=== PATIENT | male | born 1965 | race Caucasian/White ===

== ENCOUNTER 2020-07-06 09:12 | Emergency (ER) | payer MEDICARE ==
[2020-07-06 10:28] LABS: #Eosinphils 0.1 thou/uL (0.0-0.7); #Monocytes 0.6 thou/uL (0.11-0.59); #Neutrophils 3.5 thou/uL (1.40-6.50); %Basophils 0.8 % (0.0-1.0); %Eosinophils 1.2 % (0.0-10.0); %Monocytes 11.1 % (0.0-10.0); %Neutrophils 67.9 % (42.0-75.0); Hemoglobin 11.4 g/dL (14.0-18.0); Mean Corpuscular HGB CONC 33.9 g/dL (32.0-36.0); Mean Corpuscular Hemoglobin 34.1 pg (27.0-31.0); Mean Platelet Volume 7.9 fL (7.4-10.4); Platelet Count 189 thou/uL (130-400); RBC Distribution Width 13.8 % (11.5-14.5); Red Blood Cell (RBC) Count 3.34 mill/uL (4.70-6.10); White Blood Cell (WBC) Count 5.2 thou/uL (4.8-10.8)
[2020-07-06 10:52] LABS: ALT (SGPT) 30 U/L (8-55); AST (SGOT) 59 U/L (5-34); Albumin 2.6 g/dL (3.5-5.0); Alkaline Phosphatase 194 U/L (40-110); Anion Gap 14 mmol/L (10-20); BUN (Urea Nitrogen) 7 mg/dL (8.4-25.7); Bilirubin, Total 0.7 mg/dL (0.2-1.2); Calc. Creatinine Clearance 0 mL/min (70-130); Calcium 8.4 mg/dL (7.8-10.44); Carbon Dioxide 26 mmol/L (22-29); Chloride 99 mmol/L (98-107); Estimated GFR-MDRD Greater than 90; Globulin 3.2 g/dL (2.4-3.5); Glucose 93 mg/dL (70-105); Potassium 4.6 mmol/L (3.5-5.1); Protein, Total 5.8 g/dL (6.0-8.3); Sodium 134 mmol/L (136-145)
--- NOTE | 2020-07-06 11:15 | ULT ---
EXAM: Left lower extremity venous ultrasound HISTORY: Left lower extremity pain and edema COMPARISON: None TECHNIQUE: Multiplanar grayscale and color Doppler images were obtained in a left lower extremity caitlin ous ultrasound. Spectral analysis of the Doppler waveforms were performed. FINDINGS: There is visible thrombus from the common femoral vein down to the posterior tibial vein. T his involves the superficial femoral vein and popliteal vein. Flow is seen and this thrombus is incomplete. The profunda femoral vein is patent. The greater saphenous vein are patent without evidence of thrombus. IMPRESSION: DVT of the left leg as above.
--- NOTE | 2020-07-06 11:46 | PDOC.FPRHP ---
- History PMHx: PSHx: FHx: Social: - Vital signs BP: [] HR: [] RR: [] Tmax: [] Pox: []% on [] Wt: [] FMR H&P: Results - Labs Result Diagrams: 07/06/20 09:59 07/06/20 09:59 Lab results: WBC 5.2 thou/uL (4.8-10.8) 07/06/20 09:59 Hgb 11.4 g/dL (14.0-18.0) L 07/06/20 09:59 Hct 33.7 % (42.0-52.0) L 07/06/20 09:59 MCV 101.0 fL (78.0-98.0) H 07/06/20 09:59 Plt Count 189 thou/uL (130-400) 07/06/20 09:59 Neutrophils % 67.9 % (42.0-75.0) 07/06/20 09:59 Sodium 134 mmol/L (136-145) L 07/06/20 09:59 Potassium 4.6 mmol/L (3.5-5.1) 07/06/20 09:59 Chloride 99 mmol/L (98-107) 07/06/20 09:59 Carbon Dioxide 26 mmol/L (22-29) 07/06/20 09:59 BUN 7 mg/dL (8.4-25.7) L 07/06/20 09:59 Creatinine 0.82 mg/dL (0.7-1.3) 07/06/20 09:59 Glucose 93 mg/dL (70-105) 07/06/20 09:59 Calcium 8.4 mg/dL (7.8-10.44) 07/06/20 09:59 Total Bilirubin 0.7 mg/dL (0.2-1.2) 07/06/20 09:59 AST 59 U/L (5-34) H 07/06/20 09:59 ALT 30 U/L (8-55) 07/06/20 09:59 Alkaline Phosphatase 194 U/L (40-110) H 07/06/20 09:59 Serum Total Protein 5.8 g/dL (6.0-8.3) L 07/06/20 09:59 Albumin 2.6 g/dL (3.5-5.0) L 07/06/20 09:59 FMR H&P: Upper Level - Plan Date/Time: 07/06/20 1146 I, [], have evaluated this patient and agree with findings/plan as outlined by internet assessor resident. Pertinent changes/additions are listed here.
[2020-07-06] MEDS ORDERED: Enoxaparin Sodium 80 MG/0.8 ML SYRINGE ONE (11:57)
--- NOTE | 2020-07-06 12:36 | RAD ---
RADIOGRAPH CHEST 1 VIEW: DATE: 07/06/2020 HISTORY: 55-year-old male with dyspnea. COMPARISON: None FINDINGS: There are no airspace densities, pulmonary edema, pneumothorax, or cardiomegaly. The lateral costophr enic angles are sharp. There is a small stellate density at the right lateral lower lung zone. IMPRESSION: 1. No acute cardiopulmonary findings. 2. Small stellate lesion at right lower lung zone: Pulmonary scar versus small lung cancer. Recommend CT chest noncontrast for further evaluation, on a nonemergent basis.
[2020-07-06] MEDS ORDERED: Apixaban 5 MG TAB PO SCH (13:00)
== END 2020-07-06 13:19 | disposition home or self-care (01) ==
LOC: ERS 09:12
DX: I82.412 Acute embolism and thrombosis of left femoral vein (principal); I82.442 Acute embolism and thrombosis of left tibial vein; D64.9 Anemia, unspecified; R94.5 Abnormal results of liver function studies; J44.9 Chronic obstructive pulmonary disease, unspecified; F41.9 Anxiety disorder, unspecified; F32.9 Major depressive disorder, single episode, unspecified; F17.210 Nicotine dependence, cigarettes, uncomplicated
CPT/HCPCS: 36415; 71045; 80053; 82550; 83880; 84484; 85025; 85379; 93005; J1650

== ENCOUNTER 2020-12-01 18:33 | Inpatient (IN) | payer MEDICARE ==
[~2020-12-01 18:33] MED LIST: Iopamidol-370 76% 500 ML 1 ML ONE
[2020-12-01 19:09] LABS: #Basophils 0.1 thou/uL (0.0-0.2); #Eosinphils 0.2 thou/uL (0.0-0.7); #Lymphocytes 2.9 thou/uL (1.20-3.40); #Monocytes 0.9 thou/uL (0.11-0.59); #Neutrophils 8.4 thou/uL (1.40-6.50); %Basophils 0.8 % (0.0-1.0); %Eosinophils 1.9 % (0.0-10.0); %Lymphocytes 22.9 % (21.0-51.0); %Monocytes 7.4 % (0.0-10.0); Hemoglobin 12.3 g/dL (14.0-18.0); Mean Corpuscular HGB CONC 32.9 g/dL (32.0-36.0); Mean Corpuscular Hemoglobin 33.6 pg (27.0-31.0); Platelet Count 141 thou/uL (130-400); RBC Distribution Width 11.5 % (11.5-14.5); Red Blood Cell (RBC) Count 3.65 mill/uL (4.70-6.10); White Blood Cell (WBC) Count 12.5 thou/uL (4.8-10.8)
[2020-12-01 19:15] LABS: INR-International Normal Ratio 1.2; Prothrombin Time 14.9 sec (12.0-14.7)
[2020-12-01] MEDS ORDERED: Tranexamic Acid 1,000 MG/10 ML VIAL ONE (19:22)
[2020-12-01] MEDS ORDERED: Calcium Chloride 1 GM/10 ML Abboject SYRINGE ONE ×5 (19:29→21:19)
[2020-12-01 19:30] LABS: ALT (SGPT) 15 U/L (8-55); AST (SGOT) 29 U/L (5-34); Alkaline Phosphatase 99 U/L (40-110); Anion Gap 23 mmol/L (10-20); BUN (Urea Nitrogen) 4 mg/dL (8.4-25.7); Bilirubin, Total 0.5 mg/dL (0.2-1.2); Calc. Creatinine Clearance 0 mL/min (70-130); Calcium 7.6 mg/dL (7.8-10.44); Carbon Dioxide 11 mmol/L (22-29); Chloride 97 mmol/L (98-107); Globulin 2.5 g/dL (2.4-3.5); Glucose 197 mg/dL (70-105); Lipase 29 U/L (8-78); Potassium 3.3 mmol/L (3.5-5.1); Protein, Total 5.5 g/dL (6.0-8.3); Sodium 128 mmol/L (136-145)
[2020-12-01] MEDS ORDERED: Calcium Gluc 4.6 MEQ/10 ML (100 MG/ML) ONE (19:32)
[2020-12-01] MEDS ORDERED: Norepinephrine 8 MG/0.9% NS 250 ML ONE (19:34)
[2020-12-01] MEDS ORDERED: ADMIXTURE FEE IV SCH (19:45)
[2020-12-01] MEDS ORDERED: Ondansetron PF 4 MG/2 ML Vial ONE ×2 (19:45→19:48)
[2020-12-01] MEDS ORDERED: [UNRECOGNIZED DRUG - OTHER] IV SCH (19:45)
[2020-12-01] MEDS ORDERED: HUM PROTHROMBIN CPLX IV SCH (19:45)
[2020-12-01] MEDS ORDERED: Azithromycin 500 MG VIAL ONE (19:45)
[2020-12-01] MEDS ORDERED: Fentanyl 100 MCG/2 ML VIAL ONE (20:01)
[2020-12-01] MEDS ORDERED: Phenylephrine 10 MG/ML VIAL ONE (20:01)
[2020-12-01] MEDS ORDERED: Rocuronium Bromide 10 MG/ML (10ML VIAL) ONE (20:17)
[2020-12-01] MEDS ORDERED: PHENYLEPHRINE-NS 100 MCG/ML 10 ML SYRINGE ONE (20:17)
[2020-12-01] MEDS ORDERED: Lidocaine 1% PF 5 ML VIAL ONE (20:17)
[2020-12-01] MEDS ORDERED: PROPOFOL 200 MG/20 ML VIAL ONE (20:17)
[2020-12-01] MEDS ORDERED: Succinylcholine 200 MG/10 ml SYRINGE FS ONE (20:17)
[2020-12-01] MEDS ORDERED: ceFOXitin 1 GM VIAL ONE ×2 (20:25→20:59)
[2020-12-01 20:32] LABS: SARS-CoV-2 NAA Rapid Test Not Detected (NotDetected)
[2020-12-01] MEDS ORDERED: cefOXitin Sodium/Dextrose 2 GM/50 ML BAG ONE (20:57)
[2020-12-01] MEDS ORDERED: Sodium Bicarb 50 MEQ/50 ML Abboject 8.4% SYRINGE ONE (21:05)
[2020-12-01 21:23] LABS: Actual Bicarbonate (HCO3a) 18.7 mEq/L (22-28); Base Excess (BEa) -8.1 mEq/L (-2.0 to +3.0); CO2 Tension 43.2 mmHg (35.0-45.0); O2 Tension (PaO2), arterial 353.8 mmHg (80.0-100.0); pH, Arterial 7.26 (7.35-7.45)
[2020-12-01] MEDS ORDERED: Norepinephrine 4 MG/4 ML VIAL ONE ×2 (21:23→21:24)
[2020-12-01 21:24] LABS: Calcium, Ionized (arterial) 0.48 mmol/L (1.12-1.30); Carboxyhemoglobin (COHb) 1.2 gm% (0.0-3.0); Hemoglobin (Hb) 12.1 g/dL (14.0-18.0); Potassium - ABG Lab 4.41 mmol/L (3.70-5.30)
[2020-12-01 21:25] LABS: Puncture Site Other Site
[2020-12-01] MEDS ORDERED: [UNRECOGNIZED DRUG - OTHER] SLOW IVP SCH (21:30)
[2020-12-01] MEDS ORDERED: Fentanyl 250 MCG/5 ML VIAL ONE ×2 (22:08→22:29)
[2020-12-01] MEDS ORDERED: Midazolam HCl 5 mg/5 ml Vial ONE (22:29)
[2020-12-01 22:59] LABS: Hemoglobin 14.1 g/dL (14.0-18.0); Mean Corpuscular HGB CONC 33.1 g/dL (32.0-36.0); Mean Corpuscular Hemoglobin 30.8 pg (27.0-31.0); Mean Corpuscular Volume 93.1 fL (78.0-98.0); Mean Platelet Volume 8.6 fL (7.4-10.4); Platelet Count 100 thou/uL (130-400); RBC Distribution Width 13.2 % (11.5-14.5); Red Blood Cell (RBC) Count 4.58 mill/uL (4.70-6.10); White Blood Cell (WBC) Count 8.4 thou/uL (4.8-10.8)
[2020-12-01] MEDS: Sodium Chloride 0.9% 1,000 ML IV SCH (23:00)
[2020-12-01 23:17] LABS: Band 10 % (5-11); Lymphocytes 12 % (21-51); MDiff Complete? YES; Monocytes 6 % (0-10); Neutrophil 72 % (42-75); Platelet Morphology Comment Appears Decreased
[2020-12-01] MEDS ORDERED: Fentanyl CADD 100 ML ONE (23:23)
[2020-12-01] MEDS ORDERED: Propofol 1,000 MG/100 ML VIAL IV ONE (23:24)
[2020-12-01] MEDS ORDERED: HumaLOG 300 UNITS/3 ML VIAL SC PRN (23:35)
[2020-12-01] MEDS ORDERED: Ondansetron ODT 4 MG TAB PO PRN (23:35)
[2020-12-01] MEDS ORDERED: Dextrose 50% Abboject 50 ML SYRINGE SLOW IVP PRN (23:35)
[2020-12-01] MEDS ORDERED: hydrALAZINE 20 MG/ML VIAL SLOW IVP PRN (23:35)
[2020-12-01] MEDS ORDERED: Promethazine HCl 25 MG/ML VIAL IM PRN (23:35)
[2020-12-01] MEDS ORDERED: Dextrose 5% in Water 1,000 ML IV PRN (23:35)
[2020-12-01 23:40] LABS: Actual Bicarbonate (HCO3a) 33.5 mEq/L (22-28); Base Excess (BEa) 4.7 mEq/L (-2.0 to +3.0); Calcium, Ionized (arterial) 1.15 mmol/L (1.12-1.30); Carboxyhemoglobin (COHb) 1.5 gm% (0.0-3.0); Hemoglobin (Hb) 17.3 g/dL (14.0-18.0); Potassium - ABG Lab 3.38 mmol/L (3.70-5.30); pH, Arterial 7.32 (7.35-7.45)
[2020-12-02 00:03] LABS: CO2 Tension 66.3 mmHg (35.0-45.0); O2 Tension (PaO2), arterial 49.6 mmHg (80.0-100.0); Puncture Site Arterial Line
[2020-12-02 00:04] LABS: ALV-art Gradient 580.525 mmHg (0-20)
[2020-12-02] MEDS ORDERED: Electrolyte Replacement Protocol FS PRN (00:15)
[2020-12-02] MEDS ORDERED: Furosemide 40 MG/4 ML VIAL SLOW IVP SCH (00:15)
[2020-12-02 00:26] LABS: Lactic Acid 3.1 mmol/L (0.5-2.2)
[2020-12-02 00:29] VITALS: BMI 27.2
[2020-12-02 00:43] LABS: Anion Gap 18 mmol/L (10-20); BUN (Urea Nitrogen) 5 mg/dL (8.4-25.7); Calc. Creatinine Clearance 111 mL/min (70-130); Carbon Dioxide 32 mmol/L (22-29); Chloride 94 mmol/L (98-107); Glucose 171 mg/dL (70-105); Phosphorus 5.3 mg/dL (2.3-4.7); Potassium 3.3 mmol/L (3.5-5.1); Sodium 141 mmol/L (136-145)
[2020-12-02] MEDS ORDERED: DISCONTINUE PREVIOUS NARCOTIC PAIN MEDICATIONS AND BENZODIAZEPINES FS SCH (00:45)
[2020-12-02] MEDS ORDERED: Lorazepam 2 MG/ML VIAL SLOW IVP PRN (00:45)
[2020-12-02] MEDS ORDERED: Propofol BOLUS 1,000 MG/100 ML VIAL IV PRN (00:45)
[2020-12-02] MEDS ORDERED: Fentanyl BOLUS 250 ML IVPB PRN (00:45)
[2020-12-02] MEDS ORDERED: Morphine 2 MG/ML VIAL SLOW IVP PRN (00:45)
[2020-12-02] MEDS ORDERED: Potassium Chloride 40 MEQ in Premix Bag 1 BAG IVPB SCH ×2 (01:00→07:00)
[2020-12-02 01:23] LABS: Magnesium 1.7 mg/dL (1.6-2.6)
[2020-12-02] MEDS ORDERED: Norepinephrine 8 MG/0.9% NS 250 ML ONE (01:48)
[2020-12-02] MEDS: Norepinephrine 8 MG/0.9% NS 250 ML IVPB SCH ×3 (01:50→18:08)
[2020-12-02 04:10] LABS: Mean Corpuscular HGB CONC 35.4 g/dL (32.0-36.0); Mean Corpuscular Hemoglobin 31.9 pg (27.0-31.0); Mean Platelet Volume 8.7 fL (7.4-10.4); Platelet Count 122 thou/uL (130-400); RBC Distribution Width 13.6 % (11.5-14.5); Red Blood Cell (RBC) Count 5.03 mill/uL (4.70-6.10); White Blood Cell (WBC) Count 8.5 thou/uL (4.8-10.8)
[2020-12-02 04:42] LABS: Band 16 % (5-11); Lymphocytes 9 % (21-51); MDiff Complete? YES; Monocytes 10 % (0-10); Neutrophil 64 % (42-75)
[2020-12-02 05:34] LABS: ALT (SGPT) 18 U/L (8-55); AST (SGOT) 29 U/L (5-34); Albumin 3.7 g/dL (3.5-5.0); Alkaline Phosphatase 78 U/L (40-110); Anion Gap 17 mmol/L (10-20); BUN (Urea Nitrogen) 7 mg/dL (8.4-25.7); Bilirubin, Total 1.9 mg/dL (0.2-1.2); Calc. Creatinine Clearance 94 mL/min (70-130); Calcium 9.3 mg/dL (7.8-10.44); Carbon Dioxide 32 mmol/L (22-29); Chloride 96 mmol/L (98-107); Globulin 3.5 g/dL (2.4-3.5); Glucose 153 mg/dL (70-105); Potassium 3.8 mmol/L (3.5-5.1); Protein, Total 7.2 g/dL (6.0-8.3); Sodium 141 mmol/L (136-145)
[2020-12-02] MEDS: Sodium Chloride 0.9% 1,000 ML IV SCH ×2 (08:16→16:49)
[2020-12-02] MEDS: Pantoprazole 40 MG VIAL IVP SCH (08:16)
[2020-12-02 08:54] LABS: Actual Bicarbonate (HCO3a) 30.2 mEq/L (22-28); Calcium, Ionized (arterial) 1.04 mmol/L (1.12-1.30); Carboxyhemoglobin (COHb) 0.7 gm% (0.0-3.0); Hemoglobin (Hb) 16.7 g/dL (14.0-18.0); O2 Tension (PaO2), arterial 75.2 mmHg (80.0-100.0); Potassium - ABG Lab 4.11 mmol/L (3.70-5.30); pH, Arterial 7.52 (7.35-7.45)
[2020-12-02 08:56] LABS: Puncture Site Arterial Line
[2020-12-02] MEDS ORDERED: Prevnar 13-Val Conj/PF 0.5 ML SYRINGE IM ONE (09:00)
[2020-12-02] MEDS ORDERED: Multivitamins, Adult 10 ML, Folic Acid 1 MG, Thiamine HCl 100 MG in Dextrose 5 %-0.45 %... IV SCH (09:00)
[2020-12-02] MEDS: Folic Acid 1 MG, Multivitamins, Adult 10 ML in Dextrose 5 %-0.45 % NaCl 1,000 ML IV SCH (09:18)
[2020-12-02] MEDS: Thiamine HCl 200 MG/2 ML VIAL SLOW IVP SCH (09:19)
[2020-12-02] MEDS ORDERED: Bacteriostatic Water 30 ML VIAL FS PRN (10:00)
[2020-12-02] MEDS ORDERED: Fentanyl CADD 100 ML ONE ×2 (11:01→23:22)
[2020-12-02] MEDS: Fentanyl CADD 100 ML IV SCH ×2 (11:03→23:33)
[2020-12-02] MEDS: methylPREDNISolone Sod Succ 40 MG VIAL IVP SCH ×2 (12:47→18:08)
[2020-12-02] MEDS: Propofol 1,000 MG/100 ML VIAL IV PRN (16:50)
[2020-12-03] MEDS: methylPREDNISolone Sod Succ 40 MG VIAL IVP SCH ×4 (00:42→18:10)
[2020-12-03] MEDS: Propofol 1,000 MG/100 ML VIAL IV PRN (02:26)
[2020-12-03] MEDS: Norepinephrine 8 MG/0.9% NS 250 ML IVPB SCH (02:27)
[2020-12-03 04:42] LABS: ALT (SGPT) 15 U/L (8-55); AST (SGOT) 23 U/L (5-34); Albumin 3.2 g/dL (3.5-5.0); Alkaline Phosphatase 61 U/L (40-110); Anion Gap 14 mmol/L (10-20); BUN (Urea Nitrogen) 9 mg/dL (8.4-25.7); Calc. Creatinine Clearance 113 mL/min (70-130); Calcium 8.2 mg/dL (7.8-10.44); Carbon Dioxide 25 mmol/L (22-29); Chloride 103 mmol/L (98-107); Globulin 3.6 g/dL (2.4-3.5); Glucose 180 mg/dL (70-105); Potassium 3.3 mmol/L (3.5-5.1); Protein, Total 6.8 g/dL (6.0-8.3); Sodium 139 mmol/L (136-145)
[2020-12-03 05:41] LABS: Hemoglobin 15.3 g/dL (14.0-18.0); Mean Corpuscular HGB CONC 34.7 g/dL (32.0-36.0); Mean Corpuscular Hemoglobin 32.6 pg (27.0-31.0); Mean Corpuscular Volume 93.9 fL (78.0-98.0); Mean Platelet Volume 8.9 fL (7.4-10.4); Platelet Count 127 thou/uL (130-400); RBC Distribution Width 14.1 % (11.5-14.5); White Blood Cell (WBC) Count 17.2 thou/uL (4.8-10.8)
[2020-12-03] MEDS ORDERED: Potassium Chloride 40 MEQ in Premix Bag 1 BAG IVPB SCH (06:00)
[2020-12-03 06:28] LABS: #Lymphocytes 0.7 thou/uL (1.20-3.40); #Neutrophils 15.5 thou/uL (1.40-6.50); %Eosinophils 0.1 % (0.0-10.0); %Monocytes 5.7 % (0.0-10.0); %Neutrophils 90.1 % (42.0-75.0); Platelet Morphology Comment Appears Decreased; RBC Morphology Normal
[2020-12-03 07:20] LABS: Base Excess (BEa) 1.2 mEq/L (-2.0 to +3.0); CO2 Tension 42.1 mmHg (35.0-45.0); Calcium, Ionized (arterial) 1.06 mmol/L (1.12-1.30); Carboxyhemoglobin (COHb) 1.3 gm% (0.0-3.0); Hemoglobin (Hb) 14.9 g/dL (14.0-18.0); Potassium - ABG Lab 3.69 mmol/L (3.70-5.30); pH, Arterial 7.41 (7.35-7.45)
[2020-12-03] MEDS: Sodium Chloride 0.9% 1,000 ML IV SCH ×2 (07:30→19:54)
[2020-12-03 07:44] LABS: ALV-art Gradient 172.225 mmHg (0-20); Puncture Site Arterial Line
[2020-12-03] MEDS: Folic Acid 1 MG, Multivitamins, Adult 10 ML in Dextrose 5 %-0.45 % NaCl 1,000 ML IV SCH (09:29)
[2020-12-03] MEDS: Thiamine HCl 200 MG/2 ML VIAL SLOW IVP SCH (09:30)
[2020-12-03] MEDS: Pantoprazole 40 MG VIAL IVP SCH (09:30)
[2020-12-03] MEDS ORDERED: DC Sedation Protocol FS ONE (11:12)
[2020-12-03] MEDS ORDERED: Fentanyl CADD 100 ML ONE (14:16)
[2020-12-03] MEDS: Fentanyl 100 MCG/2 ML VIAL SLOW IVP PRN (18:09)
[2020-12-03] MEDS: Ondansetron PF 4 MG/2 ML Vial IVP PRN (20:09)
[2020-12-04] MEDS: methylPREDNISolone Sod Succ 40 MG VIAL IVP SCH ×2 (00:13→06:07)
[2020-12-04] MEDS: Sodium Chloride 0.9% 1,000 ML IV SCH ×3 (02:29→17:59)
[2020-12-04] MEDS: Fentanyl 100 MCG/2 ML VIAL SLOW IVP PRN ×3 (02:37→10:25)
[2020-12-04 04:44] LABS: Band 10 % (5-11); Hemoglobin 13.5 g/dL (14.0-18.0); Lymphocytes 3 % (21-51); MDiff Complete? YES; Mean Corpuscular HGB CONC 31.8 g/dL (32.0-36.0); Mean Corpuscular Hemoglobin 30.5 pg (27.0-31.0); Mean Platelet Volume 8.8 fL (7.4-10.4); Monocytes 4 % (0-10); Neutrophil 83 % (42-75); Platelet Count 140 thou/uL (130-400); RBC Distribution Width 14.3 % (11.5-14.5); Red Blood Cell (RBC) Count 4.42 mill/uL (4.70-6.10); White Blood Cell (WBC) Count 20.3 thou/uL (4.8-10.8)
[2020-12-04 04:56] LABS: ALT (SGPT) 15 U/L (8-55); AST (SGOT) 34 U/L (5-34); Alkaline Phosphatase 53 U/L (40-110); Anion Gap 16 mmol/L (10-20); BUN (Urea Nitrogen) 9 mg/dL (8.4-25.7); Bilirubin, Total 0.6 mg/dL (0.2-1.2); Calc. Creatinine Clearance 125 mL/min (70-130); Carbon Dioxide 25 mmol/L (22-29); Chloride 100 mmol/L (98-107); Globulin 3.6 g/dL (2.4-3.5); Glucose 121 mg/dL (70-105); Protein, Total 6.6 g/dL (6.0-8.3); Sodium 137 mmol/L (136-145)
[2020-12-04] MEDS: Thiamine HCl 200 MG/2 ML VIAL SLOW IVP SCH (07:42)
[2020-12-04] MEDS: Folic Acid 1 MG, Multivitamins, Adult 10 ML in Dextrose 5 %-0.45 % NaCl 1,000 ML IV SCH (09:28)
[2020-12-04] MEDS ORDERED: Diazepam 5 MG TAB PO PRN (14:12)
[2020-12-04] MEDS ORDERED: Thiamine HCl 200 MG/2 ML VIAL IM SCH (14:15)
[2020-12-04] MEDS ORDERED: Diazepam 5 MG TAB PO SCH (14:15)
[2020-12-04] MEDS: Ondansetron PF 4 MG/2 ML Vial IVP PRN (15:17)
[2020-12-04 15:33] LABS: Actual Bicarbonate (HCO3a) 16.8 mEq/L (22-28); Analyzer IN Cardio OR; Base Excess (BEa) -10.4 mEq/L (-2.0 to +3.0); CO2 Tension 42.1 mmHg (35.0-45.0); Calcium, Ionized (arterial) 0.57 mmol/L (1.12-1.30); Carboxyhemoglobin (COHb) 1.6 gm% (0.0-3.0); Hemoglobin (Hb) 13.5 g/dL (14.0-18.0); Potassium - ABG Lab 4.41 mmol/L (3.70-5.30)
[2020-12-04 15:34] LABS: Actual Bicarbonate (HCO3a) 24.3 mEq/L (22-28); Analyzer IN Cardio OR; CO2 Tension 52.5 mmHg (35.0-45.0); Calcium, Ionized (arterial) 0.84 mmol/L (1.12-1.30); Carboxyhemoglobin (COHb) 1.2 gm% (0.0-3.0); Hemoglobin (Hb) 14.4 g/dL (14.0-18.0); O2 Tension (PaO2), arterial 286.9 mmHg (80.0-100.0); Potassium - ABG Lab 4.86 mmol/L (3.70-5.30); pH, Arterial 7.28 (7.35-7.45)
[2020-12-04 15:34] LABS: Actual Bicarbonate (HCO3a) 26.5 mEq/L (22-28); Analyzer IN Cardio OR; Base Excess (BEa) 1.3 mEq/L (-2.0 to +3.0); CO2 Tension 44.8 mmHg (35.0-45.0); Calcium, Ionized (arterial) 0.88 mmol/L (1.12-1.30); Carboxyhemoglobin (COHb) 0.4 gm% (0.0-3.0); Hemoglobin (Hb) 10.4 g/dL (14.0-18.0); O2 Tension (PaO2), arterial 401.1 mmHg (80.0-100.0); Potassium - ABG Lab 4.41 mmol/L (3.70-5.30); pH, Arterial 7.39 (7.35-7.45)
[2020-12-04 15:35] LABS: Puncture Site Arterial Line; pH, Arterial 7.22 (7.35-7.45)
[2020-12-04 15:37] LABS: Puncture Site Arterial Line
[2020-12-04 15:37] LABS: Puncture Site Arterial Line
[2020-12-04] MEDS: Acetaminophen 325 MG TAB PO PRN (21:59)
[2020-12-05] MEDS ORDERED: Diazepam 5 MG TAB PO PRN (04:00)
[2020-12-05] MEDS: Sodium Chloride 0.9% 1,000 ML IV SCH ×2 (06:34→08:00)
[2020-12-05] MEDS: Magnesium Oxide 400 MG TAB PO SCH (07:59)
[2020-12-05] MEDS: Multivitamin W/ Minerals 1 TAB PO SCH (07:59)
[2020-12-05] MEDS: Folic Acid 1 MG TAB PO SCH (07:59)
[2020-12-05] MEDS: Thiamine 100 MG TAB PO SCH (07:59)
[2020-12-05] MEDS: Acetaminophen 325 MG TAB PO PRN ×2 (08:04→13:50)
[2020-12-06] MEDS: Sodium Chloride 0.9% 1,000 ML IV SCH (06:36)
[2020-12-06] MEDS: Acetaminophen 325 MG TAB PO PRN (06:37)
[2020-12-06] MEDS ORDERED: Meningococcal Vaccine 0.5ML VIAL (MENACTRA) IM ONE (09:04)
[2020-12-06] MEDS ORDERED: Acthib 0.5 ML VIAL IM ONE (09:07)
[2020-12-06] MEDS ORDERED: HYDROcodone/Chlorphen Polis 5 ML UDCUP PO PRN (09:10)
[2020-12-06] MEDS ORDERED: methylPREDNISolone Sod Succ 40 MG VIAL IVP SCH (09:15)
[2020-12-06] MEDS: Magnesium Oxide 400 MG TAB PO SCH (09:17)
[2020-12-06] MEDS: Thiamine 100 MG TAB PO SCH (09:17)
[2020-12-06] MEDS: Folic Acid 1 MG TAB PO SCH (09:17)
[2020-12-06] MEDS: Multivitamin W/ Minerals 1 TAB PO SCH (09:17)
[2020-12-06 16:35] VITALS: BP 151/98; TEMP 97.9
[2020-12-06] MEDS ORDERED: Docusate 100 MG CAP PO SCH (21:00)
== END 2020-12-06 17:07 | disposition home or self-care (01) | DRG 799 ==
LOC: ERS 18:33 → CCU 20:19 → T4-A 12-04 20:32
PROVIDERS: ADMIT Surgery; ATTEND Surgery
PROC: 07BP0ZZ Excision of Spleen, Open Approach (ICD-10-PCS; principal; 2020-12-01)
PROC: 30233K1 Transfusion of Nonautologous Frozen Plasma into Peripheral Vein, Percutaneous Approach (ICD-10-PCS; 2020-12-01)
PROC: 30233N1 Transfusion of Nonautologous Red Blood Cells into Peripheral Vein, Percutaneous Approach (ICD-10-PCS; 2020-12-01)
PROC: 30233R1 Transfusion of Nonautologous Platelets into Peripheral Vein, Percutaneous Approach (ICD-10-PCS; 2020-12-01)
PROC: 30233M1 Transfusion of Nonautologous Plasma Cryoprecipitate into Peripheral Vein, Percutaneous Approach (ICD-10-PCS; 2020-12-01)
DX: D73.5 Infarction of spleen (principal); R57.8 Other shock; J95.821 Acute postprocedural respiratory failure; J81.1 Chronic pulmonary edema; J44.9 Chronic obstructive pulmonary disease, unspecified; F41.9 Anxiety disorder, unspecified; I95.9 Hypotension, unspecified; Z20.822 Contact with and (suspected) exposure to COVID-19; F32.9 Major depressive disorder, single episode, unspecified; Z86.718 Personal history of other venous thrombosis and embolism; Z79.01 Long term (current) use of anticoagulants; Z88.0 Allergy status to penicillin; Z79.899 Other long term (current) drug therapy
CPT/HCPCS: 36415; 36416; 36430; 71045; 71275; 74018; 74174; 80053; 82805; 83605; 83690; 83735; 83880; 84100; 84484; 85025; 85384; 85610; 86850; 86870; 86900; 86901; 86905; 86922; 87040; 87086; 88305; 90648; 90733; 93005; 94002; 94003; 94640; 96374; 96375; 96376; C9113; C9132; J0456; J0694; J1940; J1956; J2001; J2250; J2370; J2405; J2704; J2920; J3010; J3411; J3475; J3480; J3490; J7042; J7620; P9012; P9016; P9035; P9048; P9059; Q0162; Q9967; U0002